=== PATIENT | female | born 1995 | race Two or more races ===

== ENCOUNTER 2018-10-18 04:47 | Emergency (ER) | payer OTHER ==
[~2018-10-18] VITALS: Ht 160 cm; Wt 59.0 kg
[2018-10-18] MEDS ORDERED: NKM (04:56)
[2018-10-18 05:05] VITALS: BP 104/60
[2018-10-18] MEDS ORDERED: Tetanus/Diptheria/Pertussis Vaccine 0.5ml Syr IM ONE (05:15)
[2018-10-18] MEDS ORDERED: Bacitracin Oint UD TOPIC ONE (06:15)
[2018-10-18] MEDS ORDERED: BACITRACIN15 GM TOPIC (06:18)
[2018-10-18] MEDS ORDERED: ACETAMINOPHEN-1 EAC1 ORAL (06:18)
[2018-10-18] MEDS ORDERED: CEPHALEXIN500 MG ORAL (06:18)
[2018-10-18 06:39] VITALS: BP 104/60
--- NOTE | 2018-10-18 22:01 | Emergency Room Report ---
History of Present Illness General Chief Complaint: Laceration Source: Patient Present Illness HPI 23-year-old female resents ED for evaluation. Presents with laceration to the right hand. States that she punched a mirror just prior to arrival. States she was upset. Tetanus unknown. Bleeding from her right fifth finger and right palm. Pain is sharp, 9 out of 10. Nonradiating. Tetanus unknown. Denies any other injuries. No other aggravating relieving factors. Denies any other associated symptoms Allergies: Coded Allergies: No Known Allergies (Unverified , 10/18/18) Patient History Past Medical History: none Past Surgical History: none Pertinent Family History: none Social History: Denies: smoking, alcohol use, drug use Last Menstrual Period: oct 13 Now: No Immunizations: UTD Reviewed Nursing Documentation: PMH: Agreed; PSxH: Agreed Nursing Documentation-PMH Past Medical History: No Stated History Review of Systems All Other Systems: negative except mentioned in HPI Physical Exam Vital Signs Date Time Temp Pulse Resp B/P (MAP) Pulse Ox O2 Delivery O2 Flow Rate FiO2 10/18/18 04:52 98.2 102 16 104/60 98 Room Air Sp02 EP Interpretation: reviewed, normal General Appearance: no apparent distress, alert, GCS 15, non-toxic Head: normocephalic Eyes: bilateral eye normal inspection, bilateral eye PERRL ENT: normal ENT inspection Neck: normal inspection Respiratory: normal inspection Cardiovascular #1: normal inspection Gastrointestinal: normal inspection Rectal: deferred Genitourinary: no CVA tenderness Musculoskeletal: back normal, gait/station normal, normal range of motion Neurologic: alert, oriented x3, responsive, motor strength/tone normal, sensory intact, speech normal Psychiatric: normal inspection Skin: laceration - 2cm flap laceration to hypothenar eminence R palm. stellate flap laceration to R pinky. no active bleeding. no tendon involvement Lymphatic: normal inspection Procedures Laceration/Wound Repair Laceration/Wound Repair : Consent: Verbal Wound Location: upper extremity - R hand Wound's Depth, Shape: irregular, flap, stellate Wound Explored: no foreign body removed Betadine Prep?: Yes Anesthesia: 1% Lidocaine Wound Debrided: minimal Wound Repaired With: sutures Suture Size/Type: 5:0, proline Layer Closure?: No Sterile Dressing Applied?: Yes Splint Applied?: No Sling Applied?: No Patient Tolerated: Well Complications: None Medical Decision Making Diagnostic Impression: Primary Impression: Hand laceration Qualified Codes: S61.411A - Laceration without foreign body of right hand, initial encounter ER Course Hospital Course 23 yo F presents with laceration to R hand s/p punched mirror Clinical course Patient placed on stretcher. After initial history and physical I ordered tetanus shot. Anesthesia provided with lidocaine. Wound irrigated. There is a flap laceration to the right hyperthenar palmar aspect. There is also an irregular stellate flap laceration to the right fifth finger. No glass or foreign body with local exploration. Wound irrigated. Laceration repaired w /o complication. Dressing applied. Discussed with patient. Explained that given the significant laceration it is possible that the skin can necrosis on the finger. There may be limited range of motion after healing. Patient needs to follow-up with hand as outpatient. I will provide referrals Dressing applied. Bacitracin applied. Wound care instructions given. I'll provide prescription for antibiotics. Diagnosis - hand laceration Stable and discharged to home with prescription for tylenol #3, keflex, bacitracin. wound Care instructions given. Followup with hand in 10-12 days for suture removal. Return to ED if any signs of infection develop Last Vital Signs Date Time Temp Pulse Resp B/P (MAP) Pulse Ox O2 Delivery O2 Flow Rate FiO2 10/18/18 06:39 98.2 83 16 104/60 98 Room Air Status: improved Disposition: HOME, SELF-CARE Condition: Stable Scripts Bacitracin (Bacitracin) 28.4 Gm Oint...g. 1 APPLIC TOPIC THREE TIMES A DAY, #28.4 GM Prov: Dwayne Julien MD 10/18/18 Cephalexin* (KEFLEX*) 500 Mg Capsule 500 MG ORAL EVERY 6 HOURS for 7 Days, CAP Prov: Dwayne Julien MD 10/18/18 Acetaminophen With Codeine (T#3) (TYLENOL #3 TAB*) Y Tab 1 TAB ORAL Q8H PRN for For Pain for 3 Days, TAB Prov: Dwayne Julien MD 10/18/18 Referrals: Valente Andersen MD NOT CHOSEN IPA/MD,REFERRING Patient Instructions: Laceration Care, Adult, [id number] Additional Instructions: keep covered 1st 24 hours. ok to clean. keep dry. cover when handling dirty items. have sutures removed in 10-14 days. return to ED if any signs of infection develop. followup with hand as outpatient. Dwayne Julien MD Oct 18, 2018 22:01
== END 2018-10-18 06:39 | disposition home or self-care (01) ==
LOC: EMR 05:08
DX: S61.411A Laceration without foreign body of right hand, initial encounter (principal); W25.XXXA Contact with sharp glass, initial encounter; Y92.89 Other specified places as the place of occurrence of the external cause; Z23 Encounter for immunization
CPT/HCPCS: 12001; 90471; 90715; 99283; Z7502